=== PATIENT | male | born 2000 | race Two or more races ===

== ENCOUNTER 2024-12-26 12:45 | Emergency (ER) | payer BC, SELFPAY ==
[2024-12-26 13:02] VITALS: BP 134/86; PULSE 87; RESP 16; TEMP 37.2; O2SAT 97; BMI 25.4
--- NOTE | 2024-12-26 13:30 | XR_ITS ---
Examination: CT abdomen and pelvis without contrast. Coronal 3-D reconstructions. Sagittal 2-D reconstructions. Date and time of exam:December 26, 2024, 1440 hrs. Indications: Abdominal pain nausea vomiting beginning last night CTDI: vol (mGy): 7.21 DLP: (mGycm): 371 Technique: Axial images of the abdomen have been obtained, 3 mm slice thickness Intravenous contrast material has not been administered. Low dose protocols were performed. One or more of the following dose reduction techniques were used; automated exposure control, adjustment of the mA and/or KV according to patient size, use of iterative reconstruction technique. Findings: No focal liver or splenic lesions No gallstones No pancreatic mass or pancreatic edema Normal adrenal glands. No renal or ureteral calculi, no hydronephrosis Aorta normal size No bowel obstruction The appendix, coronal mage 158, is fluid-filled and mildly thickened, measuring up to 6 mm, possible minimal periappendiceal inflammatory change No pericecal inflammatory changes No pelvic abscess Bladder intact Impression: The appendix is fluid-filled and mildly thickened up to 6 mm, possible minimal periappendiceal inflammatory change, the appearance should be clinically correlated for early acute appendicitis No pelvic abscess
[2024-12-26 14:14] LABS: Basophils % (Auto) 0 % (0-2.5); Eosinophils % (Auto) 0 % (0-10); Hemoglobin 16.1 g/dL (13.5-16.0); Immature Granulocytes % (Auto) 0 % (0-0); Immature Granulocytes Auto 0.02 Thou/mm3 (0.00-0.00); Lymphocytes # (Auto) 0.8 Thou/mm3 (1.0-4.8); Lymphocytes % (Auto) 13 % (10-50); Mean Corpuscular HGB Conc 36.6 g/dl (31.0-37.0); Mean Corpuscular Hemoglobin 29.9 pg (25.0-35.0); Mean Corpuscular Volume 82 fL (80-100); Monocytes # (Auto) 0.5 Thou/mm3 (0.0-0.8); Monocytes % (Auto) 9 % (0-12); Neutrophils # (Auto) 4.9 Thou/mm3 (1.8-7.7); Neutrophils % (Auto) 78 % (37-80); Nucleated Red Blood Cell % 0 /100 WBC (0); Platelet Count 174 Thou/mm3 (140-440); RDW Standard Deviation 34.7 fL (35.1-43.9); Red Blood Count 5.38 Miln/mm3 (4.50-5.90); White Blood Count 6.3 Thou/mm3 (3.8-10.6)
[2024-12-26 14:33] LABS: Alanine Aminotransferase 14 U/L (10-49); Albumin, Serum 4.6 gm/dL (3.5-5.0); Albumin/Globulin Ratio 1.4 (1.2-2.2); Alkaline Phosphatase 98 U/L (46-116); Anion Gap 9 (7-16); Aspartate Amino Transferase 20 U/L (0-34); BUN/Creatinine Ratio 7 Ratio (12-20); Bilirubin,Total 0.8 mg/dL (0.3-1.2); Blood Urea Nitrogen 7 mg/dL (9-23); Carbon Dioxide 24.8 mMol/L (20.0-31.0); Chloride 103 mMol/L (98-107); Estimated Creatinine Clearance 103.7 mL/min (>60); Globulin 3.2 gm/dL (2.3-3.5); Glucose 100 mg/dL (74-106); Lipase 26 U/L (12-53); Osmolality,Calculated 271 (275-295); Potassium 3.5 mMol/L (3.4-5.1); Sodium 137 mMol/L (136-145); Total Protein 7.8 gm/dL (5.7-8.2); eGFR > 60 See Note
[2024-12-26 14:46] LABS: Collection Type, Urine Clean Catch
[2024-12-26 14:55] LABS: Bacteria,Urine 1+; Bilirubin,Urine Negative (Negative); Blood,Urine Negative (Negative); Clarity,Urine Clear (Clear/Hazy); Color,Urine Yellow (Lt Yel-Yel); Glucose, Urine Negative (Negative); Ketones,Urine Negative (Negative); Leukocyte Esterase,Urine Negative (Negative); Nitrite,Urine Negative (Negative); Protein,Urine Trace (Neg - Trace); RBC,Urine 12 /hpf (0-3); Specific Gravity,Urine 1.035 (1.001-1.035); Squamous Epithelial Cell,Urine < 1 /hpf (0-5); Urobilinogen,Urine Negative mg/dL (0.0-1.0); WBC,Urine 1 /hpf (0-5)
--- NOTE | 2024-12-26 15:12 | EDNOTE_ITS ---
ED Abdominal Pain RME/HPI General Chief Complaint: Nausea/Vomiting/Diarrhea Stated complaint: N/V/D,ABD. PAIN, FEVER X 1WK Time seen by provider: 12/26/24 12:47 Arrival date/time: 12/26/24 12:45 This is a case of 24-year-old male who came in in the emergency room due to abdominal pain on and off for 1 week associated with nausea vomiting and diarrhea and fever patient states that the vomiting is nonprojectile nonbloody patient had loose stool none watery nonbloody and none discharge worsening of the symptoms this patient decided to sought consult here in the emergency room Limitations: no limitations Related Data Home Medications ?Medication ?Instructions ?Recorded ?Confirmed loratadine 10 mg tablet (Claritin) 10 mg PO QDAY #0 ta bs 10/11/15 Previous Rx's ?Medication ?Instructions ?Recorded amoxicillin 875 mg-potassium 1 tab PO BID 10 days #20 tabs 12/26/24 clavulanate 125 mg tablet dicyclomine 20 mg tablet 20 mg PO TID PRN abdominal p ain 12/26/24 #20 tabs ondansetron 4 mg disintegrating 4 mg PO Q8H PRN nausea and 12/26/24 tablet vomiting #20 tabs Allergies Allergy/AdvReac Type Severity Reaction Status Date / Time No Known Allergies Allergy Unverified 12/26/24 16:41 Review of Systems Review of Systems Systems Reviewed: All systems reviewed, normal except as documented Constitutional Constitutional: Reports system reviewed and no additional complaints, except as documented, Reports as per HPI, Denies anorexia, Denies body ache(s), Denies chills, Denies daytime sleepiness, Denies difficulty sleeping, Denies excessive sweating, Denies fatigue, Reports fever(s), Denies frequent falls, Denies headache(s), Denies increased appetite, Denies poor appetite, Denies lethargy, Denies malaise, Denies night sweats, Denies snoring, Denies stops breathing during sleep, Denies weakness, Denies weight gain and Denies weight loss ENT Ears, Nose, Mouth, and Throat: Denies dysphagia, Denies headache(s) and Denies odynophagia Cardiovascular Cardiovascular: Reports system reviewed and no additional complaints, except as documented and Reports as per HPI Respiratory Respiratory: Reports change in phlegm color and Denies snoring Gastrointestinal Gastrointestinal: Reports system reviewed and no additional complaints, except as documented, Reports as per HPI, Reports abdominal pain, Denies belching, Denies bloating, Denies change in bowel habits, Denies change in stool character, Denies coffee ground emesis, Denies constipation, Denies cramping, Denies diarrhea, Denies dyspepsia, Denies dysphagia, Denies early satiety, Denies excessive flatus, Denies fecal incontinence, Denies heartburn, Denies hematemesis, Denies hematochezia, Denies loose stools, Denies melena, Denies nausea, Denies odynophagia, Denies tenesmus, Denies vomiting and Denies other Genitourinary Genitourinary: Reports system reviewed and no additional complaints, except as documented and Reports as per HPI Musculoskeletal Musculoskeletal: Reports system reviewed and no additional complaints, except as documented and Reports as per HPI Neurologic Neurologic: Reports system reviewed and no additional complaints, except as documented, Reports as per HPI, Denies frequent falls, Denies headache(s) and Denies weakness Endocrine Endocrine: Denies excessive sweating and Denies fatigue Past Medical History Social History SMOKING STATUS: Never smoker ED Exam General Limitations: Present no limitations General appearance: Present alert and in no apparent distress Head Head exam: Present atraumatic, normocephalic and normal inspection Eye Eye exam: Present normal appearance, PERRL and EOMI ENT ENT exam: Present normal exam, normal oropharynx and mucous membranes moist Neck Neck exam: Present normal inspection, full ROM and trachea midline; Absent tenderness, meningismus, lymphadenopathy or thyromegaly Chest Chest inspection: Present normal inspection and symmetric chest wall rise; Absent tenderness, rash or abscess Respiratory Respiratory exam: Present normal lung sounds bilaterally; Absent respiratory distress, wheezes, stridor, accessory muscle use or prolonged expiratory phase Cardiovascular Cardiovascular exam: Present regular rate, normal rhythm and normal heart sounds; Absent bradycardia, tachycardia, irregular rhythm or systolic murmur Abdominal Exam Abdominal exam: Present soft, tenderness (Mild tenderness in periumbilical area no guarding no rebound no rigidity negative psoas negative obturator negative Rovsing's negative Emily's negative King sign negative CVA tenderness) and normal bowel sounds; Absent distention, guarding, rebound, rigidity, diminished bowel sounds, hyperactive bowel sounds, hypoactive bowel sounds, organomegaly, psoas sign, obturator sign, King's sign, Rovsing's sign or tenderness at McBurney's Point Extremities Exam Extremities exam: Present normal inspection and full ROM Back Exam Back exam: Present normal inspection and full ROM Neurological Exam Neurological exam: Present alert, oriented X3, CN II-XII intact, normal gait and reflexes normal; Absent motor sensory deficit Psychiatric Psychiatric exam: Present normal affect and normal mood Skin Skin exam: Present warm, dry, intact and normal color Course Quality Measures none Orders Category Date Time Status COVID-19 Screening Questionnaire NOW Care 12/26/24 16:34 Active Decision to Admit X1 Care 12/26/24 16:[address] abdomen pelvis wo con Stat Exams 12/26/24 13:30 Completed CBC Stat Lab 12/26/24 13:51 Completed Comprehensive Metabolic Panel Stat Lab 12/26/24 13:51 Completed Lipase Stat Lab 12/26/24 13:51 Completed Urinalysis Stat Lab 12/26/24 14:38 Completed Dicyclomine Inj [Bentyl Inj] Med 12/26/24 16:37 Once 10 mg IM X1 ONE Piper/Tazo 3.375 gm Premix [Zosyn] Med 12/26/24 16:33 Discontinued 3.375 gm in 50 ml IV X1 Sodium Chloride 0.9% 1000 ml [Ns] 1,000 ml Med 12/26/24 16:33 Discontinued IV 999 mls/hr cefTRIAXone [Rocephin] 1,000 mg Med 12/26/24 16:37 Ordered Lidocaine 1% 20 ml [Xylocaine 1% 20 ML] 2.1 ml IM X1 Vital Signs Vital signs: Vital Signs Temperature 99.0 F 12/26/24 13:02 Pulse Rate 87 12/26/24 13:02 Respiratory Rate 16 12/26/24 13:02 Blood Pressure 134/86 H 12/26/24 13:02 Pulse Oximetry (%) 97 12/26/24 13:02 Oxygen Delivery Method Room Air 12/26/24 13:02 Oxygen saturation 97% in room air normal Abdominal Pain MDM MDM Narrative MDM Narrative:: This is a case of 24-year-old male who came in in the emergency room due to abdominal pain on and off for 1 week associated with nausea vomiting and diarrhea and fever patient states that the vomiting is nonprojectile nonbloody patient had loose stool none watery nonbloody and none discharge worsening of the symptoms this patient decided to sought consult here in the emergency room physical examination patient is awake alert oriented not in distress nontoxic looking no signs and symptoms of sepsis dehydration no acute abdomen abdominal exam is benign nonsurgical no guarding no rebound no rigidity very mild tenderness on the periumbilical area negative psoas negative straight or negative Rovsing's negative McBurney's negative King sign negative CVA tenderness blood test showed no leukocytosis no anemia kidney and liver function is normal no electrolyte imbalance lipase is normal urinalysis is normal CT scan showed a fluid-filled appendix 6 mm possible periappendiceal inflammatory changes I discussed it with Dr. Camargo surgeon on-call discussed patient condition history and physical examination he instructed me that he do not think that the patient is acute appendicitis because it is only 6 mm there is no leukocytosis and my physical exam is negative at this point I was instructed to give patient prostate pain and discharge patient with Augmentin and follow-up tomorrow for reevaluation of abdominal pain I have a long discussion and instruction the patient patient will follow up with PCP in 2 days for reevaluation and return in the emergency room tomorrow in the emergency room or for any worsening symptoms or any emergent concern he will return in the emergency room immediately or call 911 patient was discharged with Augmentin Zofran for vomiting and Bentyl for abdominal pain Patient was discharged with comfortable condition walking with stable gait. Patient verbalized no further complains explained diagnosis and answered patient question. Patient is comfortable with the proposed management plan including the need to follow up with his/her primary care physician and any specialist if applicable Discussed patient for any urgent condition or worsening sx, He/She needed to go to emergency room immediately or call 911. Patient acknowledge the responsibility to follow up as instructed and to monitor her/his symptoms. For any persistence of the symptoms for more than 3-5 days return precaution advised. Discussed the result of the test and was given printed discharge instruction Patient data External records reviewed:: [facility] previous records Clinical information provided by:: patient Social determinants that could affect healthcare access:: none Patient has the following chronic illnesses:: None How is presenting disease/condition affected by chronic disease/condition?: no chronic disease Evaluation data The following diagnostics were reviewed and interpreted by me:: lab results and radiology exam(s) Lab and/or radiology exams considered but not ordered:: Reviewed Interpretation Summary: Reviewed Medications / Prescriptions Medications or Prescriptions considered but not ordered:: Given Medication administrations:: Medication Administration History Discontinued Medications Ceftriaxone Sodium 1,000 mg/ (Lidocaine HCl 2.1 ml) 0 mg IM X1 ONE Stop: 12/26/24 16:38 Dicyclomine HCl (Dicyclomine Inj 10 Mg/Ml 2ml Amp) 10 mg IM X1 ONE Stop: 12/26/24 16:38 Sodium Chloride (Ns) 1,000 mls @ 999 mls/hr IV .Q1H1M ONE Stop: 12/26/24 17:33 Piperacillin/Tazobactam/Dextrose (Zosyn) 3.375 gm in 50 mls @ 100 mls/hr IV X1 ONE Stop: 12/26/24 17:02 Given Consultations Consultation(s) initiated? (list below): Yes Consultation #1 (Physician, Specialty, Details): Dr Camargo at the time of exam patient is not in acute appendicitis only 6 mm and there is no leukocytosis discharge patient and follow-up tomorrow for reevaluation give antibiotics Time: 16:45 Diagnosis Differential diagnosis abdominal pain: abdominal pain, acute appendicitis, calculus of kidney, diverticulitis and gastroenteritis Most likely diagnosis given after review of the tests above:: Abdominal pain possible gastroenteritis Admission Indicated Admission indicated?: not indicated Explain why admission is indicated or not indicated:: Not indicated Admission Request Was there a request for admission?: No Admission Attestation Admission request attestation: Not indicated Disposition Plan Disposition Plan: Discharge Discharge Attestation Discharge Attestation: The patient and all family members were given an opportunity to ask questions and understood the discharge instructions. Discharge instructions specifically effects, indications for sooner follow up or return to the emergency department, and the expected course of current diagnosis. Patient condition: Stable Discharge Plan Plan Patient Disposition: HOME (Self Care) Patient condition on transfer: Stable Prescriptions/Referrals Prescriptions/Med Rec: New amoxicillin-pot clavulanate 875-125 mg tablet 1 tab PO BID 10 Days Qty: 20 0RF ondansetron 4 mg tablet,disintegrating 4 mg PO Q8H PRN (Reason: nausea and vomiting) Qty: 20 0RF dicyclomine 20 mg tablet 20 mg PO TID PRN (Reason: abdominal pain) Qty: 20 0RF No Action loratadine [Claritin] 10 MG tablet 10 mg PO QDAY Qty: 0 Referrals: Nigel Ascencio MD [Primary Care Provider] - In 1 week Problem List Clinical Impression: Abdominal pain, Nausea, vomiting and diarrhea, Gastroenteritis Patient/Caregiver Discharge Instructions Education Materials: Abdominal Pain, ED Diarrhea, Unknown Cause, ED Gastroenteritis, Noninfectious, ED Vomiting (Adult) Additional Instructions: Follow-up with your primary care physician in 2 days for reevaluation worsening symptoms or any emergent concern call 911 or go to the nearest emergency room it is very important to return in the emergency room tomorrow for reevaluation take your medication as directed increase water intake keep hydrated Pedialyte Gatorade for every bouts of vomiting and or diarrhea take your medication as directed finish the course of antibiotic Print Language: Serbian Stand Alone Forms: Judith Award Info., Patient Portal Info Letter PA/[employer] Supervising Physician PA/[employer] Supervising Physician: dr mcdonald
[2024-12-26 15:53] VITALS: BP 134/84; PULSE 74; RESP 16; TEMP 37.6; O2SAT 100
[2024-12-26] MEDS: DICYCLOMINE INJ 10 MG/ML 2ML AMP IM (17:28)
[2024-12-26] MEDS: cefTRIAXone 1,000 MG, LIDOCAINE 1% 20 ML 2.1 ML IM (17:28)
== END 2024-12-26 18:27 | disposition home or self-care (01) ==
PROVIDERS: Nurse Practitioner Family; Emergency Provider Emergency Medicine; PCP Family Medicine
DX: K52.9 Noninfective gastroenteritis and colitis, unspecified (principal)
CPT/HCPCS: 36415; 74176; 80053; 81001; 83690; 85025; 96372; 99284; J0500; J0696; J3490